=== PATIENT | female | born 1970 | race Caucasian/White ===

== ENCOUNTER → 2020-08-09 | Outpatient (CLI) | payer BC, OTHER ==
[~2020-08-09] MED LIST: ASPIR-TRIN325 MG PO; DITROPAN XL 5 MG5 MG PO; HYDROCHLOROTHIA25 MG PO; IBUPROFEN800 MG PO; NORVASC 5 MG TAB5 MG PO; PERCOCET 5-3251 EACH PO; PHENERGAN 12.12.5 M1 PO; PROTONIX 40 MG40 M1 PO; STOOL SOFTENER250 MG PO
[2020-08-09 11:44] LABS: HEMOGLOBIN 12.8 gm/dl (12.3-15.3); RED BLOOD COUNT 4.54 M/UL (4.00-5.10); WHITE BLOOD COUNT 5.8 K/UL (4.5-11.0)
[2020-08-09 12:07] LABS: BUN/CREATININE RATIO 19 (0-10)
== END ==
LOC: LAB 11:18
PROVIDERS: Family Medicine
DX: I10 Essential (primary) hypertension (principal); E78.5 Hyperlipidemia, unspecified
CPT/HCPCS: 36415; 80053; 80061; 85027

== ENCOUNTER → 2021-04-14 | Outpatient (CLI) | payer BC ==
[2021-04-14 10:10] LABS: HEMOGLOBIN 12.5 gm/dl (12.3-15.3); RED BLOOD COUNT 4.37 M/UL (4.00-5.10); WHITE BLOOD COUNT 6.3 K/UL (4.5-11.0)
[2021-04-14 10:41] LABS: BUN/CREATININE RATIO 14 (0-10)
== END ==
LOC: LAB 09:40
PROVIDERS: Family Medicine
DX: I10 Essential (primary) hypertension (principal); E78.5 Hyperlipidemia, unspecified
CPT/HCPCS: 36415; 80053; 80061; 83735; 84550; 85027

== ENCOUNTER → 2021-04-24 | Outpatient (CLI) | payer BC | LOC: RAD 13:27 | DX: M25.571 Pain in right ankle and joints of right foot (principal) | CPT/HCPCS: 73610 ==

== ENCOUNTER → 2021-05-19 | Outpatient (CLI) | payer BC ==
[2021-05-19 11:21] LABS: BUN/CREATININE RATIO 14 (0-10)
== END ==
LOC: LAB 10:16
PROVIDERS: Family Medicine
DX: E87.6 Hypokalemia (principal)
CPT/HCPCS: 36415; 80048; 83735

== ENCOUNTER → 2021-07-31 | Outpatient (CLI) | payer BC | LOC: KOH-I 10:16 | DX: M25.571 Pain in right ankle and joints of right foot (principal); M25.471 Effusion, right ankle; M65.871 Other synovitis and tenosynovitis, right ankle and foot | CPT/HCPCS: 73721 ==

== ENCOUNTER 2021-12-08 10:51 | Inpatient (IN) | payer BC ==
[~2021-12-08] VITALS: Ht 162.6 cm; Wt 101.6 kg
[~2021-12-08 10:51] MED LIST changes: -DITROPAN XL 5 MG5 MG PO; +OXYBUTYNIN CHLO15 MG PO; +STOOL SOFTENER100 MG PO; -STOOL SOFTENER250 MG PO
[2021-12-08 12:00] LABS: HEMOGLOBIN 11.5 gm/dl (12.3-15.3); RED BLOOD COUNT 4.2 M/UL (4.00-5.10); WHITE BLOOD COUNT 5.3 K/UL (4.5-11.0)
[2021-12-08 12:12] LABS: BUN/CREATININE RATIO 19 (0-10)
[2021-12-08] MEDS ORDERED: TRAMADOL HCL50 MG PO (15:52)
[2021-12-08] MEDS ORDERED: ONDANSETRON HCL8 MG PO (15:52)
[2021-12-08] MEDS ORDERED: BACTRIM DS TAB1 EACH PO (15:53)
[2021-12-08] MEDS ORDERED: FEXOFENADINE H180 MG PO (15:53)
[2021-12-08] MEDS ORDERED: CYMBALTA60 MG PO (15:54)
[2021-12-08] MEDS ORDERED: CYMBALTA30 MG PO (15:55)
[2021-12-08] MEDS ORDERED: K-TAB ER10 MEQ PO (15:56)
[2021-12-08] MEDS ORDERED: ROPINIROLE HCL1 MG PO (15:56)
[2021-12-08] MEDS ORDERED: MONTELUKAST SOD10 MG PO (15:57)
[2021-12-08] MEDS ORDERED: ROPINIROLE HCL2 MG PO (15:57)
[2021-12-08] MEDS ORDERED: CELEBREX100 MG PO (15:57)
[2021-12-08] MEDS ORDERED: VITAMIN D325 MC6 PO (15:58)
[2021-12-08] MEDS ORDERED: TIZANIDINE HCL4 MG PO (15:58)
[2021-12-08] MEDS ORDERED: MULTIVITAMIN1 EACH PO (15:58)
[2021-12-08] MEDS ORDERED: VITAMIN B-121000 MCG PO (15:59)
[2021-12-09 04:40] LABS: HEMOGLOBIN 11.5 gm/dl (12.3-15.3); RED BLOOD COUNT 4.05 M/UL (4.00-5.10)
[2021-12-09 04:46] LABS: WHITE BLOOD COUNT 9.9 K/UL (4.5-11.0)
[2021-12-09 05:03] LABS: BUN/CREATININE RATIO 22 (0-10)
[2021-12-10 06:37] LABS: HEMOGLOBIN 10.8 gm/dl (12.3-15.3); RED BLOOD COUNT 3.86 M/UL (4.00-5.10)
[2021-12-10 06:48] LABS: WHITE BLOOD COUNT 14.8 K/UL (4.5-11.0)
[2021-12-10 06:56] LABS: BUN/CREATININE RATIO 23 (0-10)
[2021-12-10] MEDS ORDERED: IPRAT-ALBUT 0.5-3 ML INH (16:21)
[2021-12-10] MEDS ORDERED: ADVAIR 500-501 EACH INH (16:21)
[2021-12-10] MEDS ORDERED: MEDROL DOSEPAK 24 MG PO (16:34)
== END 2021-12-10 17:24 | disposition home or self-care (01) | DRG 189 ==
LOC: ER1 10:51 → CDU 15:03 → M/S 21:20
PROVIDERS: Emergency Medicine; Physician Assistant Medical; ADMIT Internal Medicine
DX: J96.01 Acute respiratory failure with hypoxia (principal); J45.901 Unspecified asthma with (acute) exacerbation; J98.11 Atelectasis; Z20.822 Contact with and (suspected) exposure to COVID-19; I10 Essential (primary) hypertension; E66.01 Morbid (severe) obesity due to excess calories; M19.90 Unspecified osteoarthritis, unspecified site; E87.6 Hypokalemia; Z90.49 Acquired absence of other specified parts of digestive tract; Z79.899 Other long term (current) drug therapy; Z68.38 Body mass index [BMI] 38.0-38.9, adult
CPT/HCPCS: 0240U; 36415; 71045; 80048; 80053; 82550; 82553; 82803; 83735; 83880; 84484; 85025; 85027; 85379; 87040; 93005; 94640; 94664; 94760; 96374; 96375; 96376; 99285; J0696; J1650; J2930; Q9967

== ENCOUNTER → 2022-01-09 | Outpatient (CLI) | payer BC ==
[~2022-01-09] MED LIST changes: +ADVAIR 500-501 EACH INH; +BACTRIM DS TAB1 EACH PO; +CELEBREX100 MG PO; +CYMBALTA30 MG PO; +CYMBALTA60 MG PO; +FEXOFENADINE H180 MG PO; +IPRAT-ALBUT 0.5-3 ML INH; +K-TAB ER10 MEQ PO; +MEDROL DOSEPAK 24 MG PO; +MONTELUKAST SOD10 MG PO; +MULTIVITAMIN1 EACH PO; +ONDANSETRON HCL8 MG PO; +ROPINIROLE HCL1 MG PO; +ROPINIROLE HCL2 MG PO; +TIZANIDINE HCL4 MG PO; +TRAMADOL HCL50 MG PO; +VITAMIN B-121000 MCG PO; +VITAMIN D325 MC6 PO
== END ==
LOC: HEART 5 09:43
DX: R06.02 Shortness of breath (principal); J98.11 Atelectasis
CPT/HCPCS: 71046; 94060; 94729; 95012

== ENCOUNTER → 2022-02-09 | Outpatient (CLI) | payer BC | LOC: HEART 5 16:10 | DX: J45.40 Moderate persistent asthma, uncomplicated (principal); R94.2 Abnormal results of pulmonary function studies | CPT/HCPCS: 94060; 95012 ==

== ENCOUNTER → 2022-02-13 | Outpatient (CLI) | payer BC ==
[2022-02-13 12:48] LABS: HEMOGLOBIN 11.1 gm/dl (12.3-15.3); RED BLOOD COUNT 3.86 M/UL (4.00-5.10); WHITE BLOOD COUNT 5.8 K/UL (4.5-11.0)
[2022-02-13 13:17] LABS: BUN/CREATININE RATIO 15 (0-10)
[2022-02-14 07:10] LABS: VITAMIN D, 25-HYDROXY 61.1 ng/mL (30.0-100.0)
[2022-02-14 10:14] LABS: IMMUNOGLOBULIN A, QN, SERUM 238 mg/dL (87-352); IMMUNOGLOBULIN G, QN, SERUM 760 mg/dL (586-1602); IMMUNOGLOBULIN M, QN, SERUM 127 mg/dL (26-217)
[2022-02-14 13:08] LABS: SARS-COV-2 SEMI-QUANT TOTAL AB See Dilution U/mL (Negative<0.8); SARS-COV-2 SPIKE AB DILUTION 1864 U/mL (Negative<0.8); SARS-COV-2 SPIKE AB INTERP Positive (.)
== END ==
LOC: ECHO 11:45
PROVIDERS: Internal Medicine Pulmonary Disease; Nurse Practitioner Family
DX: R06.02 Shortness of breath (principal)
CPT/HCPCS: ECHO; 36415; 71046; 80053; 82784; 82785; 85025; 93306

== ENCOUNTER → 2022-03-04 | Outpatient (CLI) | payer BC | LOC: HEART 5 12:47 | DX: R00.2 Palpitations (principal); R06.02 Shortness of breath ==

== ENCOUNTER → 2022-03-17 | Outpatient (CLI) | payer BC | LOC: HEART 5 09:15 | DX: I10 Essential (primary) hypertension (principal); R06.02 Shortness of breath; R00.2 Palpitations | CPT/HCPCS: 78452; A9502; J2785 ==